=== PATIENT | male | born 1985 | race African-American/Black ===

== ENCOUNTER → 2021-08-24 | Outpatient (CLI) | payer OTHER ==
[~2021-08-24] MED LIST: IOHEXOL 300 MG/ML 75 ML VIAL. IV ONE
--- NOTE | 2021-08-24 09:46 | RAD ---
INDICATION: Evaluation of hernia. Abdomen pain. COMPARISON: None. TECHNIQUE: Axial CT images were obtained through the abdomen with intravenous contrast. One or more of the following individualized dose reduction techniques were utilized for this examinat ion: 1. Automated exposure control; 2. Adjustment of the mA and/or kV according to patient size; 3 . Use of iterative reconstruction technique. FINDINGS: At the anterior abdominal wall near midline there is a small defect in the anterior abdominal wall of the neck measuring approximately 13 mm and fat as well as small suspected mesenteric vessel extendin g into the subcutaneous soft tissues. This small hernia sac measures approximately 65 x 22 mm. This i s located near the inferior aspect of the left lobe of the liver. The neck is located 8 cm superior t o the umbilicus. Vascular: No abdominal aortic aneurysm. Hepatobiliary: No intrahepatic biliary duct dilation. Pancreas: No peripancreatic edema. Spleen: Spleen unremarkable. RenalNo hydronephrosis. Gastrointestinal: No bowel dilation to suggest obstruction. There is some degenerative changes spine. IMPRESSION: * Anterior abdominal wall fat-containing hernia is seen. No loops of bowel extend into the hernia s ac. Electronically signed by: Jonathan Vega MD (08/24/2021 9:43 AM) [id number]
== END ==
LOC: CT 08:56
PROVIDERS: ATTEND Surgery
DX: K43.9 Ventral hernia without obstruction or gangrene (principal); M47.819 Spondylosis without myelopathy or radiculopathy, site unspecified
CPT/HCPCS: 74160; Q9967

== ENCOUNTER 2021-10-08 19:47 | Emergency (ER) | payer OTHER ==
[~2021-10-08] VITALS: Ht 190.5 cm; Wt 111.1 kg
[2021-10-08 20:05] VITALS: BP 150/65
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
[2021-10-08 20:36] LABS: BARBITURATES NEG (NEG); BENZODIAZEPINES NEG (NEG); CANNABINOIDS POS (NEG); COCAINE NEG (NEG); METHADONE NEG (NEG); OPIATES NEG (NEG); PHENCYCLIDINE NEG (NEG)
[2021-10-08 20:37] LABS: AMPHETAMINE/METHAMPHETAMINE NEG (NEG)
[2021-10-08 21:05] LABS: BACTERIA,URINE 0 /HPF (0-FEW); CLARITY,URINE CLEAR; COLOR,URINE YELLOW; GLUCOSE,URINE NEG (NEG); NITRITE,URINE NEG (NEG); RBC,URINE OCC /HPF (0-2); SQUAMOUS EPITHELIAL CELL,UR OCC /LPF; UROBILINOGEN,URINE 0.2 mg/dL (0.2 mg/dL); WBC,URINE 0 /HPF (0-4)
== END 2021-10-08 21:32 | disposition home or self-care (01) ==
LOC: ER 19:47
DX: Z11.3 Encounter for screening for infections with a predominantly sexual mode of transmission (principal)
CPT/HCPCS: 36415; 80307; 81001; 87491; 87591; 99283